=== PATIENT | male | born 1945 | race Caucasian/White ===

== ENCOUNTER 2018-10-09 12:18 | Emergency (ER) | payer MEDICARE, BC ==
[~2018-10-09] VITALS: Wt 113.0 kg
[2018-10-09] MEDS ORDERED: ONDANSETRON (ODT) 4 MG TAB ODT STA (12:28)
[2018-10-09] MEDS ORDERED: HYDROCODONE/APAP (10/325) TAB PO ONE (12:30)
[2018-10-09] MEDS ORDERED: HYDR-3980 PO (13:22)
[2018-10-09] MEDS ORDERED: NALO4SPR NS (13:22)
[2018-10-09 14:05] VITALS: BP 111/69; PULSE 71; RESP 18
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
== END 2018-10-09 14:05 | disposition home or self-care (01) ==
LOC: FTE 12:18
DX: S42.035A Nondisplaced fracture of lateral end of left clavicle, initial encounter for closed fracture (principal); I10 Essential (primary) hypertension; V43.52XA Car driver injured in collision with other type car in traffic accident, initial encounter
CPT/HCPCS: 73030